=== PATIENT | male | born 1980 | race Native Hawaiian/Other Pacific Islander ===

== ENCOUNTER 2024-07-07 01:18 | Emergency (ER) | payer OTHER, SELFPAY ==
[2024-07-07] VITALS (9 sets, daily range): BP systolic 155–185; BP diastolic 97–108; PULSE 85–112; RESP 16–97; TEMP 36.7–37.1; O2SAT 96–98; BMI 29.9
--- NOTE | 2024-07-07 01:39 | EDNOTE_ITS ---
ED Chest Pain RME/HPI General Chief Complaint: Chest Pain Stated Complaint: CHEST PAIN Time Seen by Provider: 07/07/24 01:22 Arrival date/time: 07/07/24 01:18 RME / HPI RME / HPI narrative: Dr. Warner?s Main ED Evaluation: 44yo male with pmhx HTN, HLD BIBA presents to the ED for a chief complaint of left-sided chest pain. 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 No radiation or migration. He states he felt like he was going to pass out, but denies any falls or injuries. He states he used to be on antihypertensives, but has not taken his meds in 2 months due to eating a healthier diet and doing more exercise. He denies any shortness of breath, N/V, sweating, abdominal pain, back pain or any other associated symptoms. States he used to smoke cigarettes, but now vapes. Denies any alcohol or illicit drug use. Denies any history of similar symptoms. Denies any familial cardiac history. Related Data Previous Rx's ?Medication ?Instructions ?Recorded lisinopril 30 mg tablet 30 mg PO QDAY 30 days #30 tabs 07/07/24 Allergies Allergy/AdvReac Type Severity Reaction Status Date / Time SHELLFISH Allergy Severe FACIAL Uncoded 06/08/20 12:13 SWELLING Review of Systems Review of Systems Systems Reviewed: All systems reviewed, normal except as documented Past Medical History Past Medical History CARDIAC: Positive Cardiac Disorders, Hypercholesterolemia and Hypertension; Negative Congestive Heart Failure RESPIRATORY: Negative Chronic Obstructive Pulmonary Disease (COPD) GENITOURINARY: Negative Renal Disease ENDOCRINE: Negative Diabetes Mellitus Type 1 or Diabetes Mellitus Type 2 (PT STATES BORDERLINE, NOT ON ANY MEDS) Social History SMOKING STATUS: Never smoker ED Exam Narrative Physical exam: GENERAL APPEARANCE: alert and oriented x 4, well-developed, well-nourished, no acute distress VITALS: All vitals were reviewed and the pulse ox is 97% on room air, which is normal according to my interpretation. HEENT: Normocephalic, atraumatic; pupils equal, round, reactive to light; EOMI; mucous membranes pink, moist; oropharynx clear NECK: Supple LUNGS: CTABL; no wheezes, no rales, no rhonchi HEART: Tachycardic, regular rhythm; normal S1, S2; no murmurs ABDOMEN: non distended; normal BS; soft, no tenderness, no guarding, no rebound; no masses, no organomegaly, no hernia BACK: no CVA tenderness EXTREMITIES: atraumatic; no edema NEUROLOGIC: awake; alert and oriented x4; cranial nerves II-XII grossly intact; no focal sensory or motor deficits PSYCHIATRIC: appropriate mood and affect SKIN: warm, dry, normal color; no rashes Course Course Course Narrative: CXR is ordered for determining the etiology of chest pain. Quality Measures none Orders Category Date Time Status CT Screening NOW Care 07/07/24 01:50 Active Trim Mechanic STAT Care 07/07/24 01:49 Active Continuous Pulse Oximetry ONCE Care 07/07/24 01:49 Active EKG (ED ONLY) *Do not use* NOW Care 07/07/24 01:34 Completed Insert IV STAT Care 07/07/24 01:[address] angio chest Stat Exams 07/07/24 01:50 Taken EKG (ED Only) Stat Exams 07/07/24 01:34 Ordered XR chest 1V portable Stat Exams 07/07/24 01:49 Taken B-Type Natriuretic Peptide Stat Lab 07/07/24 01:52 Completed CBC Stat Lab 07/07/24 01:52 Completed Comprehensive Metabolic Panel Stat Lab 07/07/24 01:52 Completed Lipase Stat Lab 07/07/24 01:52 Completed Magnesium Stat Lab 07/07/24 01:52 Completed Partial Thromboplastin Time Stat Lab 07/07/24 01:52 Completed Troponin I Stat Lab 07/07/24 01:52 Completed Troponin I Stat Lab 07/07/24 04:50 Completed HYDROmorphone INJ [Dilaudid Inj] Med 07/07/24 01:49 Discontinued 1 mg IVP Q1H PRN Ondansetron Inj [Zofran Inj] Med 07/07/24 01:51 Discontinued 4 mg IV X1 ONE hydrALAZINE INJ [Apresoline Inj] Med 07/07/24 04:03 Discontinued 10 mg IV X1 ONE Oxygen Delivery NOW RT 07/07/24 01:49 Active Vital Signs Vital signs: Vital Signs Temperature 98.0 F 07/07/24 01:20 Pulse Rate 109 H 07/07/24 01:20 Respiratory Rate 20 07/07/24 01:20 Blood Pressure 164/100 H 07/07/24 01:20 Pulse Oximetry (%) 97 07/07/24 01:20 Oxygen Delivery Method Room Air 07/07/24 01:20 Procedures -ED Smoking Cessation Time Spent Discussing Smoking Cessation w/Patient (min): 5 Patient Acknowledges Need for Cessation: Yes Additional Comments: The patient was counseled as to the multiple risks to their health from continued use of tobacco products. It was explained that continuing to smoke may lead to multiple short and terminal supervisor negative health consequences, including but not limited to mouth/esophageal/lung cancer, COPD, and heart disease. The patient states she/he understands these risks and also understands the options and resources available to them to help them stop smoking. Nicotine replacement therapy, local hotlines, and local resources were discussed as viable options for helping them stop their tobacco use. The total time spent counseling the patient regarding tobacco cessation was 5 minutes. Chest Pain MDM Narrative MDM Narrative:: HEART Score is 3, indicating the patient is at a low risk for a major cardiac event. Patient data External records reviewed:: [facility] previous records (Per chart review, patient was seen here on 06/08/20 for noncardiac chest pain.) Clinical information provided by:: patient Social determinants that could affect healthcare access:: substance use (used to smoke cigarettes, but now vapes) Patient has the following chronic illnesses:: HTN, HLD How is presenting disease/condition affected by chronic disease/condition?: exacerbated by Evaluation data The following diagnostics were reviewed and interpreted by me:: lab results, radiology exam(s) and EKG tracing(s) Lab and/or radiology exams considered but not ordered:: none Interpretation Summary: CBC is normal, CMP is normal, Magnesium is normal, Troponin is normal, BNP is normal, according to my interpretation. Repeat troponin is normal. CXR is negative for rib fractures, no infiltrates, sharp diaphragmatic edge, trachea is deviated to the right, somewhat widened mediastinum, according to my interpretation. EKG done at 0129, sinus tachycardia, rate of 103, left axis deviation, no ectopy, no acute ischemia, according to my interpretation. -------- Telerad Preliminary Report Draft Patient: GISELA TANNER [facility]. Record#: [id number] Birthdate: 1980 Age/Sex: 44 / M Location: [facility] Attending Dr: Ordering Physician: Date of Service: Procedure(s): Accession Number(s): cc: ~ CT angiogram of the chest with intravenous contrast (axial sections with sagittal and coronal reformats) July 07, 2024 0314 hours Clinical History: left sided cp Technique:Helical axial sections with sagittal and coronal reformats of the chest were obtained with intravenous contrast. Iterative reconstruction technique was employed to reduce patient radiation exposure. 3D/MIP reconstructed images were also provided. Findings: There is no filling defect within the pulmonary artery divisions to suggest pulmonary thromboembolism. The mediastinum demonstrates no evidence of mass or lymphadenopathy. The thoracic aorta is unremarkable. There is no pericardial effusion. The lungs are clear. No evidence of pleural effusion or pneumothorax. The osseous structures are unremarkable. The visualized upper abdominal viscera are unremarkable. Impression: No CT evidence of pulmonary thromboembolism or other acute intrathoracic pathology. Report Electronically Signed By: Alexi Reynoso 07/07/2024 4:16:49 AM [EST] Medications / Prescriptions Medications or Prescriptions considered but not ordered:: none Medication administrations:: Medication Administration History Discontinued Medications Hydralazine HCl (Hydralazine Inj 20 Mg/Ml Vial) 10 mg IV X1 ONE Stop: 07/07/24 04:04 Last Admin: 07/07/24 04:25 Dose: 10 mg Documented By: SERA Hydromorphone HCl (Hydromorphone Inj 2 Mg/Ml Vial) 1 mg IVP Q1H PRN PRN Reason: chest pain Stop: 07/07/24 04:49 Ondansetron HCl (Ondansetron Inj 2 Mg/Ml Inj 2 Ml) 4 mg IV X1 ONE; Protocol Stop: 07/07/24 01:52 Last Admin: 07/07/24 04:25 Dose: Not Given Documented By: SERA Non-Admin Reason: Patient Refused see above, if any Consultations Consultation(s) initiated? (list below): No Diagnosis Chest Pain Differential Diagnosis: other (hypertensive urgency, hypertensive emergency, STEMI, NSTEMI) Most likely diagnosis given after review of the tests above:: see below Admission Indicated Admission indicated?: not indicated Admission Request Was there a request for admission?: No Disposition Plan Disposition Plan: Discharge Discharge Attestation Discharge Attestation: The patient and all family members were given an opportunity to ask questions and understood the discharge instructions. Discharge instructions specifically effects, indications for sooner follow up or return to the emergency department, and the expected course of current diagnosis. Patient condition: Stable Discharge Plan Plan Patient Disposition: HOME (Self Care) Disposition Comment: Stable for discharge Patient condition on transfer: Stable Prescriptions/Referrals Prescriptions/Med Rec: New lisinopril 30 mg tablet 30 mg PO QDAY 30 Days Qty: 30 0RF Referrals: Glenn Pereyra MD [Physician] - In 1 week Problem List Clinical Impression: Chest pain Patient/Caregiver Discharge Instructions Discharge Activity: activity as tolerated Education Materials: ED Chest Pain, Uncertain Cause Additional Instructions: Please return to the emergency department for any worsening or any further medical problems You should follow-up with Dr. Pereyra within the next week or so. Please call his office today and make an appointment Follow-up with your primary care doctor within the next several days. Print Language: Nauruan Stand Alone Forms: Veronika Award Info., Patient Portal Info Letter
--- NOTE | 2024-07-07 01:49 | XR_ITS ---
Examination: AP chest single view Technique one AP portable upright chest single view Exam date and time: July 07, 2024 0202 hours INDICATIONS: Chest pain today FINDINGS: Normal heart size Lungs are clear. Moderate osteopenia IMPRESSION: No lobar pneumonia or pulmonary edema
--- NOTE | 2024-07-07 01:50 | XR_ITS ---
Examination: CTA chest with intravenous contrast 2-D reconstructions 3-D reconstructions, vascular Date and time of exam: July 07, 2024 0314 hrs. Indications: Onset left-sided chest pain with high blood pressure today, high blood pressure 5 years CTDI: vol (mGy) 22.94 DLP: (mGycm) 547 Technique: Multiple axial sections of the thorax have been obtained. 3 mm slice thickness, from below the hemidiaphragms to above the apices of the lungs. Mediastinal and lung density settings have been obtained. 2-D sagittal and coronal reconstructions. 3-D angiographic renderings, 3-D volume renderings, 3D post processing, vascular maximum intensity projections obtained. Contrast administered is 100 cc Isovue-370 intravenous Low dose protocols were performed. One or more of the following dose reduction techniques were used; automated exposure control, adjustment of the mA and/or KV according to patient size, use of iterative reconstruction technique. Findings: AP dimension ascending thoracic aorta 3.6 cm Pulmonary artery segments are not enlarged, no pulmonary artery emboli No paratracheal tracheobronchial or bronchopulmonary adenopathy 7 mm pulmonary nodule left upper lobe image 128 No pneumonia or pulmonary edema No visualized liver or splenic lesion No gallstones identified No pancreatic or adrenal mass No hydronephrosis Impression: Negative lower thoracic aortic aneurysm dilatation or dissection Negative for pulmonary artery emboli 7 mm pulmonary nodule left upper lobe, recommend 3 month follow-up PA lateral chest
[2024-07-07 02:11] LABS: Basophils % (Auto) 0 % (0-2.5); Eosinophils # (Auto) 0.5 Thou/mm3 (0.0-0.5); Eosinophils % (Auto) 7 % (0-10); Hematocrit 47.4 % (41.0-53.0); Hemoglobin 16.7 g/dL (13.5-16.0); Immature Granulocytes % (Auto) 0 % (0-0); Immature Granulocytes Auto 0.02 Thou/mm3 (0.00-0.00); Lymphocytes # (Auto) 2.9 Thou/mm3 (1.0-4.8); Lymphocytes % (Auto) 37 % (10-50); Mean Corpuscular HGB Conc 35.2 g/dl (31.0-37.0); Mean Corpuscular Hemoglobin 29.2 pg (25.0-35.0); Mean Corpuscular Volume 83 fL (80-100); Monocytes # (Auto) 0.5 Thou/mm3 (0.0-0.8); Monocytes % (Auto) 7 % (0-12); Neutrophils # (Auto) 3.8 Thou/mm3 (1.8-7.7); Neutrophils % (Auto) 49 % (37-80); Nucleated Red Blood Cell % 0 /100 WBC (0); Platelet Count 338 Thou/mm3 (140-440); RDW Standard Deviation 41.1 fL (35.1-43.9); Red Blood Count 5.72 Miln/mm3 (4.50-5.90); White Blood Count 7.8 Thou/mm3 (3.8-10.6)
--- NOTE | 2024-07-07 02:21 | PC.NURSE ---
Pt reports severe allergy to shellfish. Dr. Warner informed since IV contrast is ordered.
[2024-07-07 02:31] LABS: Partial Thromboplastin Time 26.8 Seconds (22.0-36.0)
[2024-07-07 02:32] LABS: Alanine Aminotransferase 19 U/L (10-49); Albumin, Serum 4.9 gm/dL (3.5-5.0); Alkaline Phosphatase 68 U/L (46-116); Anion Gap 10 (7-16); Aspartate Amino Transferase 20 U/L (0-34); BUN/Creatinine Ratio 13 Ratio (12-20); Bilirubin,Total 0.5 mg/dL (0.3-1.2); Blood Urea Nitrogen 15 mg/dL (9-23); Calcium 9.9 mg/dL (8.3-10.6); Calcium (Corrected) 9.9 mg/dL (8.5-10.1); Carbon Dioxide 23.5 mMol/L (20.0-31.0); Chloride 105 mMol/L (98-107); Creatinine (Component) 1.2 mg/dL (0.6-1.3); Estimated Creatinine Clearance 80.9 mL/min (>60); Globulin 2.4 gm/dL (2.3-3.5); Glucose 100 mg/dL (74-106); Lipase 39 U/L (12-53); Magnesium 2.3 mg/dL (1.6-2.6); Osmolality,Calculated 276 (275-295); Potassium 3.4 mMol/L (3.4-5.1); Sodium 138 mMol/L (136-145); Total Protein 7.3 gm/dL (5.7-8.2); Troponin I < 0.020 ng/mL (0.0-0.045); eGFR > 60 See Note
[2024-07-07 02:51] LABS: B-Type Natriuretic Peptide < 20 pg/mL (0-100)
--- NOTE | 2024-07-07 04:17 | PRELIM_ITS ---
CT angiogram of the chest with intravenous contrast (axial sections with sagittal and coronal reforma ts) July 07, 2024 0314 hours Clinical History: left sided cp Technique:Helical axial sections wit h sagittal and coronal reformats of the chest were obtained with intravenous contrast. Iterative nat nstruction technique was employed to reduce patient radiation exposure. 3D/MIP reconstructed images w ere also provided. Findings:There is no filling defect within the pulmonary artery divisions to sugge st pulmonary thromboembolism. The mediastinum demonstrates no evidence of mass or lymphadenopathy. Th e thoracic aorta is unremarkable. There is no pericardial effusion. The lungs are clear. No evidence of pleural effusion or pneumothorax.The osseous structures are unremarkable.The visualized upper abdo anthony viscera are unremarkable.Impression:No CT evidence of pulmonary thromboembolism or other acute intrathoracic pathology. Report Electronically Signed By: Alexi Reynoso 07/07/2024 4:16:49 AM [EST]
[2024-07-07] MEDS: hydrALAZINE INJ 20 MG/ML VIAL 10 MG IV (04:25)
[2024-07-07 05:28] LABS: Troponin I < 0.020 ng/mL (0.0-0.045)
== END 2024-07-07 05:39 | disposition home or self-care (01) ==
LOC: SERX 06:28
PROVIDERS: Emergency Provider Emergency Medicine; PCP Family Medicine
DX: R07.89 Other chest pain (principal); R00.0 Tachycardia, unspecified; F17.290 Nicotine dependence, other tobacco product, uncomplicated; Z71.6 Tobacco abuse counseling; I10 Essential (primary) hypertension; E78.00 Pure hypercholesterolemia, unspecified
CPT/HCPCS: 36415; 71045; 71275; 80053; 83690; 83735; 83880; 84484; 85025; 85730; 93005; 99285; A4649; J0360; Q9967

== ENCOUNTER → 2024-08-17 | Outpatient (CLI) | payer OTHER, SELFPAY ==
[2024-08-17 13:24] LABS: Collection Type, Urine Clean Catch; Squamous Epithelial Cell,Urine 0 /hpf (0-5)
[2024-08-17 13:51] LABS: Basophils % (Auto) 0 % (0-2.5); Eosinophils # (Auto) 0.7 Thou/mm3 (0.0-0.5); Eosinophils % (Auto) 10 % (0-10); Hemoglobin 15.1 g/dL (13.5-16.0); Immature Granulocytes % (Auto) 1 % (0-0); Immature Granulocytes Auto 0.05 Thou/mm3 (0.00-0.00); Lymphocytes # (Auto) 2.1 Thou/mm3 (1.0-4.8); Lymphocytes % (Auto) 33 % (10-50); Mean Corpuscular HGB Conc 33.6 g/dl (31.0-37.0); Mean Corpuscular Hemoglobin 28.2 pg (25.0-35.0); Mean Corpuscular Volume 84 fL (80-100); Monocytes # (Auto) 0.5 Thou/mm3 (0.0-0.8); Monocytes % (Auto) 7 % (0-12); Neutrophils # (Auto) 3.2 Thou/mm3 (1.8-7.7); Neutrophils % (Auto) 49 % (37-80); Nucleated Red Blood Cell % 0 /100 WBC (0); Platelet Count 309 Thou/mm3 (140-440); RDW Standard Deviation 39.9 fL (35.1-43.9); Red Blood Count 5.36 Miln/mm3 (4.50-5.90); White Blood Count 6.5 Thou/mm3 (3.8-10.6)
[2024-08-17 13:56] LABS: Bilirubin,Urine Negative (Negative); Blood,Urine Negative (Negative); Clarity,Urine Clear (Clear/Hazy); Color,Urine Lt-Yellow (Lt Yel-Yel); Culture Indicated,Urine Not Indicated; Glucose, Urine Negative (Negative); Ketones,Urine Negative (Negative); Leukocyte Esterase,Urine Negative (Negative); Nitrite,Urine Negative (Negative); Protein,Urine Negative (Neg - Trace); RBC,Urine < 1 /hpf (0-3); Specific Gravity,Urine 1.027 (1.001-1.035); Urobilinogen,Urine Negative mg/dL (0.0-1.0); WBC,Urine 1 /hpf (0-5)
[2024-08-17 13:56] LABS: Glucose Estimated Average 120 mg/dL (80-131); Hemoglobin A1C 5.8 % Hgb (4.8-6.0)
[2024-08-17 14:04] LABS: Alanine Aminotransferase 37 U/L (10-49); Albumin, Serum 5.1 gm/dL (3.5-5.0); Albumin/Globulin Ratio 2.3 (1.2-2.2); Alkaline Phosphatase 54 U/L (46-116); Anion Gap 10 (7-16); Aspartate Amino Transferase 14 U/L (0-34); BUN/Creatinine Ratio 17 Ratio (12-20); Bilirubin,Total 0.7 mg/dL (0.3-1.2); Blood Urea Nitrogen 17 mg/dL (9-23); Calcium 9.8 mg/dL (8.3-10.6); Calcium (Corrected) 9.8 mg/dL (8.5-10.1); Carbon Dioxide 26.6 mMol/L (20.0-31.0); Cardiac Risk Estimate 2.1 RATIO (4.0-6.7); Chloride 104 mMol/L (98-107); Cholesterol 202 mg/dL (132-200); Globulin 2.2 gm/dL (2.3-3.5); Glucose 105 mg/dL (74-106); HDL Cholesterol 94 mg/dL (40-60); LDL Cholesterol,Calculated 76 mg/dL (0-130); Osmolality,Calculated 282 (275-295); Potassium 4.1 mMol/L (3.4-5.1); Sodium 141 mMol/L (136-145); Total Protein 7.3 gm/dL (5.7-8.2); Triglycerides 162 mg/dL (30-150); eGFR > 60 See Note
[2024-08-17 14:20] LABS: Thyroid Stimulating Hormone 0.97 uIU/mL (0.55-4.78)
== END | disposition home or self-care (01) ==
LOC: COPL 12:40
PROVIDERS: PCP Physician Assistant; Referring Provider Physician Assistant; Visit Provider Physician Assistant
DX: E78.5 Hyperlipidemia, unspecified (principal)
CPT/HCPCS: 36415; 80053; 80061; 81001; 83036; 84443; 85025

== ENCOUNTER 2025-01-14 10:30 | Day surgery (SDC) | payer OTHER, SELFPAY ==
--- NOTE | 2025-01-13 07:00 | EKG_ITS ---
[facility] Test Date: 2025-01-13 Pat Name: GISELA TANNER Department: Room: - Gender: Male Closing Supervisor: BLANCA : 1980 Requested By: Glenn Pereyra Order Number: [id number] Reading MD: Glenn Pereyra Measurements Intervals Peterman Rate: 55 P: 14 LA: 146 QRS: 57 QRSD: 122 T: 55 QT: 421 QTc: 404 Interpretive Statements SINUS BRADYCARDIA MODERATE INTRAVENTRICULAR CONDUCTION DELAY [110+ ms QRS DURATION] Compared to ECG 06/08/2020 12:21:03 Intraventricular conduction delay now present Sinus rhythm no longer present /store/S0/[id number]/ecg/[id number].pdf
[2025-01-13 10:30] LABS: Basophils % (Auto) 0 % (0-2.5); Eosinophils # (Auto) 0.4 Thou/mm3 (0.0-0.5); Eosinophils % (Auto) 7 % (0-10); Hematocrit 44.7 % (41.0-53.0); Immature Granulocytes % (Auto) 0 % (0-0); Immature Granulocytes Auto 0.01 Thou/mm3 (0.00-0.00); Lymphocytes # (Auto) 2.1 Thou/mm3 (1.0-4.8); Lymphocytes % (Auto) 39 % (10-50); Mean Corpuscular HGB Conc 33.6 g/dl (31.0-37.0); Mean Corpuscular Hemoglobin 28.9 pg (25.0-35.0); Mean Corpuscular Volume 86 fL (80-100); Monocytes # (Auto) 0.4 Thou/mm3 (0.0-0.8); Monocytes % (Auto) 7 % (0-12); Neutrophils # (Auto) 2.4 Thou/mm3 (1.8-7.7); Neutrophils % (Auto) 45 % (37-80); Nucleated Red Blood Cell % 0 /100 WBC (0); Platelet Count 280 Thou/mm3 (140-440); RDW Standard Deviation 41.1 fL (35.1-43.9); Red Blood Count 5.19 Miln/mm3 (4.50-5.90); White Blood Count 5.3 Thou/mm3 (3.8-10.6)
[2025-01-13 10:36] LABS: Anion Gap 10 (7-16); BUN/Creatinine Ratio 13 Ratio (12-20); Blood Urea Nitrogen 15 mg/dL (9-23); Carbon Dioxide 28.9 mMol/L (20.0-31.0); Chloride 105 mMol/L (98-107); Creatinine (Component) 1.2 mg/dL (0.6-1.3); Glucose 103 mg/dL (74-106); Osmolality,Calculated 287 (275-295); Potassium 4.4 mMol/L (3.4-5.1); Sodium 144 mMol/L (136-145); eGFR > 60 See Note
[2025-01-13 10:38] LABS: Prothrombin Time 10.7 Seconds (9.0-12.2)
[2025-01-14] VITALS (9 sets, daily range): BP systolic 103–138; BP diastolic 53–91; PULSE 64–79; RESP 12–24; TEMP 36.6–36.7; O2SAT 95–100; BMI 31.0
--- NOTE | 2025-01-14 18:43 | PD.CARDCATH ---
Cardiac Cath Procedure Procedure Name Date of procedure: 01/14/25 MANAGER FIELD: Glenn Pereyra MD PROCEDURE PERFORMED: 1. Left heart cardiac catheterization including right, left coronary angiograms and left ventriculogram 2. Ultrasound-guided access of the right radial artery 3. Conscious sedation for 30 minutes. Procedure Narrative HISTORY AND INDICATIONS: A 44 year old male with a past medical history of sinus tachycardia, prediabetic, hypertension, hyperlipidemia, smoke. Patient initially presented to the office for evaluatio of chest pain and chest pressure was accompanied with significant palpitations as well as dizziness. Started ischemic cardiac work up and NST showed decreased uptake in the apical and anteroapical segments at stress that improved with rest, indicating ischemia. EF is 50%. TID and wall motion are normal. Patient was brought in for an elective cardiac catheterization. Patient was explained the risk benefits and alternatives of performing a left heart cardiac catheterization including the risk of bleeding, heart attack, stroke and in detail and the agreeable for the procedure. Consent signed, placed in the chart and H&P updated. DESCRIPTION OF PROCEDURE: The patient was brought to the cardiac catheterization lab and all asceptic precautions were followed. Patient was given 1 Mg of Versed and 50 mcg of fentanyl for moderate conscious sedation. 2 mL of lidocaine was given in the right wrist. The right radial artery was accessed via the ultrasound guidance as well as micropuncture technique. A 6 Canadian glide sheath was introduced. We then used a 5 Canadian TIG 4 catheter to perform the left and right coronary angiograms as well as a left ventriculogram which showed the following findings. 1. Left ventricular ejection fraction was normal at 55 to 60% without any regional wall motion abnormalities. LVEDP was normal at 9 mmHg. There was no significant transvalvular aortic gradient. 2. Right dominant circulation 3. Left main artery is a large-caliber vessel without any significant stenosis. 4. LAD is a large sized artery with a medium size diagonal and without show any significant disease. 5. LCx is a large sized artery with medium OM1 and small OM2 without any significant disease. 6. RCA is a large artery with medium RPDA and RPL without any significant disease. A radial band was used to achieve the hemostasis of the right radial artery access. Patient will be monitored in the cardiac dry can tender for the next 2 to 3 hours and will be discharged home / telemetry later today if hemodynamically stable. Complications: None Specimens: None Blood loss: Estimated 5-10 ml Summary/findings: 1. Abnormal Stress test: LHC showed normal coronaries without any angiographically significant obstruction. There was significant coronary artery vasospasm with the catheters. 2. LVEF was normal at 55-60% and normal LVEDP of 10 mmHg. No transvalvular aortic gradient. Recommendations: 1. Recommended aggressive risk factor modification and aggressive medical treatment for the coronary vasospasm and recommeded patient to quit smoking and vaping completely and avoid secondhand smoke exposure. 2. Recommended no lifting more than 5 pounds for next 7-10 days and follow up in my office in 7 days. Glenn Pereyra MD Interventional Cardiology.
== END 2025-01-14 16:01 | disposition home or self-care (01) ==
PROVIDERS: PCP Family Medicine; Referring Provider Internal Medicine Cardiovascular Disease; Visit Provider Internal Medicine Cardiovascular Disease
PROC: (CPT 93458; principal; 2025-01-14 11:30)
DX: R94.39 Abnormal result of other cardiovascular function study (principal); I20.1 Angina pectoris with documented spasm; Z01.810 Encounter for preprocedural cardiovascular examination; R73.03 Prediabetes; I10 Essential (primary) hypertension; R07.9 Chest pain, unspecified; E78.00 Pure hypercholesterolemia, unspecified; F17.200 Nicotine dependence, unspecified, uncomplicated; R00.0 Tachycardia, unspecified; Z82.49 Family history of ischemic heart disease and other diseases of the circulatory system; E66.9 Obesity, unspecified; Z68.31 Body mass index [BMI] 31.0-31.9, adult
CPT/HCPCS: 93458; 36415; 80048; 85025; 85610; 85730; 93005; 99152; 99153; C1887; C1894; J0153; J0171; J0282; J0461; J1200; J1643; J1720; J2250; J2310; J2371; J3010; J3490; C1725; J2305